=== PATIENT | female | born 1975 | race Caucasian/White ===

== ENCOUNTER → 2021-11-01 | Outpatient (CLI) | payer MEDICAID ==
[~2021-11-01] MED LIST: CEFTIN125 MG PO; CETIRIZINE; CLINDAMYCIN HC300 MG PO; COLACE 100100 MG/CAP PO; FLONASE NASAL S16 GM NS; LORTAB 5/500 501 TAB PO; MIRENA52 MG IU; NIFEDIPINE20 MG PO; PERCOCET 325 MG1 TA2 PO; PERCOCET 650 MG1 TAB PO; PRENATAL VITAMI1 TA5 PO; SYNTHROID0.1 MG/TAB PO; VITAMINS
== END ==
LOC: MC.RAD 10-01 14:00
DX: Z12.31 Encounter for screening mammogram for malignant neoplasm of breast (principal)

== ENCOUNTER → 2024-01-23 | Outpatient (CLI) | payer MEDICAID | LOC: MC.RAD 10:45 | DX: R92.8 Other abnormal and inconclusive findings on diagnostic imaging of breast (principal) ==